=== PATIENT | male | born 1960 | race Caucasian/White ===

== ENCOUNTER 2017-03-09 17:42 | Inpatient (IN) ==
[2017-03-09] MEDS ORDERED: SODIUM CHLORIDE 0.9% 1,000 ML IV STA (18:08)
[2017-03-09] MEDS ORDERED: diphenhydrAMINE 50 MG/1 ML VIAL IV STA (18:10)
[2017-03-09] MEDS ORDERED: methylPREDNISolone SOD SUC 125 MG/2 ML VIAL IV STA (18:10)
[2017-03-09] MEDS ORDERED: AZITHROMYCIN INJ 500 MG in SODIUM CHLORIDE 0.9% 250 ML IV STA (18:10)
--- NOTE | 2017-03-09 18:29 | Emergency Department Note ---
Arrival - Arrival Chief Complaint: Upper Respiratory Stated Complaint: pharyngitis, cant swallow, cant eat ED Nursing Triage Note: pt to triage via [facility] with c/o having sore throat onset tuesday. pt was seen here on tuesday for same c/o and was diagnosed with pharnygitis and cant hardly eat or drink from throat hurting. pt states he feels like he is weak and dehydrated. Mode of Arrival: Wheelchair Limitations: No Limitations Source: Patient, Family, Old Records Reviewed, RN Notes Reviewed Time Seen by Provider: 03/09/17 17:55 - History of Present Illness HPI Narrative: The patient complains of a sore throat that started 3 days ago. 2 days ago he was seen here in the ER although I can find no records of this. The family states he received Rocephin and a prescription for Keflex and liquid pain medication. He has had 3 doses of the Keflex. He reports no improvement in the sore throat and has been unable to eat or drink much for the past 2 days. Says he feels weak and dehydrated. He has not taken his temperature and does not know if he has had fever. He denies rhinorrhea. He does have a chronic cough from COPD. Allergies/Adverse Reactions: Allergies Allergy/AdvReac Type Severity Reaction Status Date / Time clindamycin Allergy Unknown/Unable Verified 03/09/17 17:49 to obtain Penicillins AdvReac Nausea Verified 03/09/17 17:49 Home Medications: Home Medications Medication Instructions Recorded Confirmed Type Allopurinol [Zyloprim] 300 mg PO DAILY 11/09/14 08/21/16 History Aspirin [Ecotrin] 81 mg PO BEDTIME 11/09/14 08/21/16 History Cimetidine [Tagamet Hb] 200 mg PO BID 11/09/14 08/21/16 History Clopidogrel [Plavix] 75 mg PO DAILY 11/09/14 08/21/16 History Diltiazem Cd Cap [Cardizem CD] 300 mg PO DAILY 11/09/14 08/21/16 History Hydrochlorothiazide 25 mg PO DAILY 11/09/14 08/21/16 History Magnesium Oxide [Magox 400] 400 mg PO DAILY 11/09/14 08/21/16 History Simvastatin [Zocor] 40 mg PO BEDTIME 11/09/14 08/21/16 History Gemfibrozil [Lopid] 600 mg PO BIDAC tablet 06/13/15 08/21/16 Rx Nitroglycerin Sl Tab [Nitrostat] 0.4 mg SL Q5M PRN #0 tablet 06/13/15 08/21/16 Rx Insulin NPH Human Isophane 42 unit SUBCUT BID 10/07/15 08/21/16 History [NovoLIN N] Lansoprazole 15 mg PO DAILY 08/21/16 08/21/16 History Lisinopril [Lisinopril] 20 mg PO DAILY 08/21/16 08/21/16 History Sulfameth/Trimeth 800-160 Tab 1 tablet PO BID #20 tablet 08/21/16 Rx [Bactrim DS Tab] Warfarin Sodium 5 mg PO Q3D 08/21/16 08/21/16 History Warfarin Sodium 10 mg PO DAILY 08/21/16 08/21/16 History glipiZIDE [Glucotrol] 5 mg PO BID 08/21/16 08/21/16 History Isosorbide Mononitrate [Imdur] 30 mg PO DAILY #30 tablet 10/21/16 Rx Metoclopramide Tab [Reglan Tab] 5 mg PO ACHS #120 tablet 10/21/16 Rx Review of System - Review of System 12 point system: reviewed and no additional remarkable complaints except as stated - Review of System Constitutional: Present: weakness Head/Ears/Nose/Throat: Present: sore throat. Absent: nasal drainage Respiratory: Present: cough. Absent: respiratory distress, wheezing Cardiovascular: Absent: chest pain Gastrointestinal: Present: nausea. Absent: vomiting Medical,Surgical,& Family Hx - Medical History Cardio: History of: CAD (stents PLACED 4 DIFFERENT TIMES), Hypertension, [place] Neurology: History of: Cerebrovascular Accident (7-8 YEARS AGO), TIA ("about 8- 10 years ago") HEENT: History of: Eye Problem (wears reading glasses) Endocrine: History of: Diabetes Mellitus (NIDDM), Dyslipidemia Rheumatology: History of;: Gout Respiratory: History of: COPD (wears c-pap machine at night), Obstructive Sleep Apnea Renal: History of: Renal Problems (Mild CRF diabetic related) Gastrointestinal: History of: Hemorrhoids Hematology: History of: Blood Disorders (polycythemia vera) - Surgical History Cardiac Surgeries: Sugical HX of: Cardiac Catheterization (2 WEEKS AGO) - Family History Family History: Reports;: Family Heart Disease (brother- heart defects, no coronary artery disease) - Social History Smoking Status: Smoker, status unknown Frequency of Alcohol Use: None Type of Drug Use: None Exam Physical Examination: GENERAL: Alert. No acute distress. Strong smell of cigarette smoke. HEENT: Normocephalic and atraumatic. There is no nasal drainage. Very dry mucous membranes. There is pharyngeal erythema and exudate. Also a small amount of exudate on the soft palate. NECK: Normal inspection. Bilateral tender anterior cervical lymphadenopathy. LUNGS: No respiratory distress. Good air movement. Few rhonchi bilaterally. HEART: Regular rate and rhythm. ABDOMEN: Soft, nontender and nondistended with normoactive bowel sounds. BACK: Mid back lipoma. Nontender. SKIN: Color normal. Warm and dry. EXTREMITIES: Nontender. Normal range of motion. No pedal edema. NEUROLOGICAL/PSYCHIATRIC: Alert and oriented -3 with normal mood and affect.. Vital Signs: Vital Signs Temperature 98.9 F 03/09/17 17:57 Pulse Rate 121 H 03/09/17 19:20 Respiratory Rate 18 03/09/17 19:20 Blood Pressure 178/90 03/09/17 19:20 O2 Sat by Pulse Oximetry 95 03/09/17 17:46 Course - Reevaluation(s) Reevaluation #1: The patient feels better after fluids but still appears dry and I think he is going to need further hydration. I have discussed the patient with Dr. Ba who will see him in the ER and admit. Time: 20:12 Results - Labs CBC & BMP: 03/09/17 18:24 03/09/17 18:24 Lab Results: I have reviewed the patients labs Labs: Laboratory Tests 03/09/17 03/09/17 18:24 18:24 Lactic Acid 1.2 Infectious [place] Assay Negative Disposition Clinical Impression: Pharyngitis, COPD (chronic obstructive pulmonary disease), Dehydration Case discussed with: patient, patient's family Disposition: Still a Patient Condition: Stable Time of Disposition: 20:13
[2017-03-09] MEDS ORDERED: diphenhydrAMINE 50 MG/1 ML VIAL ONE (18:37)
[2017-03-09] MEDS ORDERED: methylPREDNISolone SOD SUC 125 MG/2 ML VIAL ONE (18:37)
[2017-03-09 18:45] LABS: Basophils # 0.1 10*3/uL (0.0-0.2); Basophils % 0.3 % (0.0-0.8); Eosinophils # 0.3 10*3/uL (0.0-0.87); Hematocrit 40.1 VOL% (42.0-52.0); Hemoglobin 13.9 GM/DL (14.0-18.0); Immature Granulocytes % 0.7 %; Lymphocytes # 1.4 10*3/uL (1.4-4.0); Lymphocytes % 9.2 % (21.2-54.2); Mean Corpuscular HGB Conc 34.7 GM/DL (32-36); Mean Corpuscular Hemoglobin 31 PG (27-34); Mean Corpuscular Volume 89.9 FL (87-102); Mean Platelet Volume 12.4 FL (9.6-12.0); Monocytes # 1.1 10*3/uL (0.11-0.8); Neutrophils # 12.4 10*3/uL (1.4-7.4); Neutrophils % 80.8 % (38.7-73.9); Platelet Count 270 T/CUMM (130-400); Red Blood Count 4.46 MC/CUMM (3.8-5.5); Red Cell Distribution Width 15.7 % (9.3-17.3); White Blood Count 15.3 T/CUMM (4-12)
[2017-03-09] MEDS ORDERED: AZITHROMYCIN 500 MG VIAL IV ONE (19:00)
[2017-03-09 19:02] LABS: Calcium 9.3 MG/DL (8.5-10.1); Osmolality,Calculated 301.7 MOS/KG (273-304); Potassium 4.7 MMOL/L (3.5-5.1)
[2017-03-09] MEDS ORDERED: MORPHINE 2 MG/1 ML SYRINGE IV STA (20:11)
[2017-03-09] MEDS ORDERED: MORPHINE 2 MG/1 ML SYRINGE ONE (20:21)
[2017-03-09] MEDS ORDERED: DEXTROSE 50% 25 GM/50 ML SYRINGE IV PRN ×2 (20:22→23:17)
[2017-03-09] MEDS ORDERED: MORPHINE 2 MG/1 ML SYRINGE IV PRN (20:22)
[2017-03-09] MEDS ORDERED: GLUCAGON 1 MG VIAL IM PRN ×2 (20:22→23:17)
[2017-03-09] MEDS ORDERED: ONDANSETRON 4 MG/2 ML VIAL IV PRN (20:22)
--- NOTE | 2017-03-09 20:31 | Hospitalist History & Physical ---
Assessment and Plan (1) Dehydration Status: Acute Current Visit: Yes (2) Pharyngitis Status: Acute Current Visit: Yes (3) COPD (chronic obstructive pulmonary disease) Status: Chronic Current Visit: No (4) Chronic anticoagulation Status: Chronic Current Visit: No (5) Polycythemia vera Status: Chronic Current Visit: No (6) Renal insufficiency Status: Chronic Current Visit: No (7) Tobacco abuse Status: Chronic Assessment and plan: Patient is ago to be admitted to our service. He is allergic to penicillin therefore azithromycin IV would be appropriate treatment. If he does not have significant improvement he might need a CT scan to document there is no abscess in his pharynx. Will recheck labs in the in the morning. His lactate level is not elevated. Start up with a clear liquid diet. Insulin sliding scale as needed. Tobacco cessation was discussed with the patient. Greater than 3 minutes was spent on the subject. Current Visit: No History of Present Illness Chief complaint: Inability to swallow and sore throat History of present illness: Mr. René Lovett is a 57 year old male with past medical history significant for polycythemia vera, stroke, coronary artery disease, gout, COPD, obstructive sleep apnea, diabetes and hypertension who was in his normal state of health till Tuesday. Patient went to the doctor and got diagnosed with pharyngitis. He was able to eat or drink or keep anything down and take his medication secondary to sore throat. He came up to our hospital for further evaluation. He is dehydrated and I was consulted to admit the patient to the emergency room. Home Medications Medication Instructions Recorded Confirmed Type Allopurinol [Zyloprim] 300 mg PO DAILY 11/09/14 03/09/17 History Aspirin [Ecotrin] 81 mg PO BEDTIME 11/09/14 03/09/17 History Cimetidine [Tagamet Hb] 200 mg PO BID 11/09/14 03/09/17 History Clopidogrel [Plavix] 75 mg PO DAILY 11/09/14 03/09/17 History Diltiazem Cd Cap [Cardizem CD] 300 mg PO DAILY 11/09/14 03/09/17 History Hydrochlorothiazide 25 mg PO DAILY 11/09/14 03/09/17 History Magnesium Oxide [Magox 400] 400 mg PO DAILY 11/09/14 03/09/17 History Simvastatin [Zocor] 40 mg PO BEDTIME 11/09/14 03/09/17 History Gemfibrozil [Lopid] 600 mg PO BIDAC tablet 06/13/15 03/09/17 Rx Nitroglycerin Sl Tab [Nitrostat] 0.4 mg SL Q5M PRN #0 tablet 06/13/15 03/09/17 Rx Insulin NPH Human Isophane 42 unit SUBCUT BID 10/07/15 03/09/17 History [NovoLIN N] Lisinopril [Lisinopril] 20 mg PO DAILY 08/21/16 03/09/17 History Warfarin Sodium 10 mg PO DAILY 08/21/16 03/09/17 History glipiZIDE [Glucotrol] 5 mg PO BID 08/21/16 03/09/17 History Allergies Allergy/AdvReac Type Severity Reaction Status Date / Time clindamycin Allergy Unknown/Unable Verified 03/09/17 17:49 to obtain Penicillins AdvReac Nausea Verified 03/09/17 17:49 Medical,Surgical,& Family Hx - Medical History Cardio: History of: CAD (stents PLACED 4 DIFFERENT TIMES), Hypertension, [place] Neurology: History of: Cerebrovascular Accident (7-8 YEARS AGO), TIA ("about 8- 10 years ago") No history of: Seizures HEENT: History of: Eye Problem (wears reading glasses) Endocrine: History of: Diabetes Mellitus (NIDDM), Dyslipidemia Rheumatology: History of;: Gout Respiratory: History of: COPD (wears c-pap machine at night), Obstructive Sleep Apnea Renal: History of: Renal Problems (Mild CRF diabetic related) Gastrointestinal: History of: Hemorrhoids Hematology: History of: Blood Disorders (polycythemia vera) - Surgical History Cardiac Surgeries: Sugical HX of: Cardiac Catheterization (2 WEEKS AGO) Thoracic Surgeries: Patient denies;: Organ Transplant - Family History Family History: Reports;: Family Heart Disease (brother- heart defects, no coronary artery disease) Denies;: Family Anesthesia Reaction, Family Cancer, Family Diabetes - Social History Smoking Status: Current every day smoker Frequency of Alcohol Use: None Type of Drug Use: None 12 point system: reviewed and no additional remarkable complaints except as stated Exam - Constitutional Vitals: Period Temp Pulse Resp BP Sys/Tracy Pulse Ox Last 24 Hr 98.9 F-98.9 F 118-121 17-20 137-178/80-90 95-98 General appearance: over weight - Head Head exam: Present: normal inspection - Eye Eye exam: Present: EOMI Pupils: Present: GERONIMO - ENT ENT exam: Present: other (Patient has erythematous oropharynx and there is exudate on his tonsils) - Neck Neck exam: Present: lymphadenopathy - Respiratory Respiratory exam: Present: clear to auscultation bilaterally - Cardiovascular Cardiovascular exam: Present: regular rate and rhythm - GI/Abdominal GI/Abdominal exam: Present: normal bowel sounds - Extremities Exam Extremities exam: Present: normal inspection - Back Exam Back exam: Present: normal inspection - Neurological Exam Neurological exam: Present: alert, oriented X3 - Psychiatric Psychiatric exam: Present: normal affect, normal mood Results - Labs CBC & BMP: 03/09/17 18:24 03/09/17 18:24
[2017-03-09] MEDS ORDERED: NICOTINE 21 MG/24 HR PATCH TRANSDERM PRN (21:10)
[2017-03-09] MEDS: SIMVASTATIN 40 MG TABLET PO SCH (22:06)
[2017-03-09] MEDS: ASPIRIN EC 81 MG TABLET PO SCH (22:06)
[2017-03-09] MEDS: FAMOTIDINE 20 MG TABLET PO SCH (22:06)
[2017-03-09 22:37] LABS: PT Patient Result 171.3 SECS
[2017-03-09 22:40] LABS: INR 13.7
[2017-03-09] MEDS: SODIUM ACETATE 50 MEQ in SODIUM CHLORIDE 0.45% 1,000 ML IV SCH (22:51)
[2017-03-09] MEDS ORDERED: PHYTONADIONE 5 MG TABLET PO ONE (23:19)
[2017-03-10 07:25] LABS: Basophils % 0.1 % (0.0-0.8); Hematocrit 35.7 VOL% (42.0-52.0); Hemoglobin 12.2 GM/DL (14.0-18.0); Immature Granulocytes % 0.8 %; Immature Granulocytes Absolute 0.08 #; Lymphocytes # 0.6 10*3/uL (1.4-4.0); Lymphocytes % 6.5 % (21.2-54.2); Mean Corpuscular HGB Conc 34.2 GM/DL (32-36); Mean Corpuscular Hemoglobin 31 PG (27-34); Mean Corpuscular Volume 91.3 FL (87-102); Mean Platelet Volume 12.5 FL (9.6-12.0); Monocytes # 0.3 10*3/uL (0.11-0.8); Monocytes % 3.2 % (1.7-12.7); Neutrophils # 8.8 10*3/uL (1.4-7.4); Neutrophils % 89.4 % (38.7-73.9); Platelet Count 233 T/CUMM (130-400); Red Blood Count 3.91 MC/CUMM (3.8-5.5); Red Cell Distribution Width 15.5 % (9.3-17.3); White Blood Count 9.9 T/CUMM (4-12)
[2017-03-10 07:46] LABS: PT Patient Result 133.9 SECS
[2017-03-10 07:50] LABS: INR 10.9
[2017-03-10 08:20] LABS: Calcium 8.7 MG/DL (8.5-10.1); Osmolality,Calculated 317.3 MOS/KG (273-304); Potassium 5.2 MMOL/L (3.5-5.1)
[2017-03-10] MEDS: SODIUM ACETATE 50 MEQ in SODIUM CHLORIDE 0.45% 1,000 ML IV SCH ×3 (08:40→20:26)
[2017-03-10] MEDS: INSULIN REGULAR 100 UNIT/ML SUBCUT SCH ×4 (08:40→21:44)
[2017-03-10] MEDS: GEMFIBROZIL 600 MG TABLET PO SCH ×2 (08:41→17:18)
[2017-03-10] MEDS: hydroCHLOROthiazide 25 MG TABLET PO SCH (08:41)
[2017-03-10] MEDS: DILTIAZEM CD 300 MG CAPSULE PO SCH (08:41)
[2017-03-10] MEDS: FAMOTIDINE 20 MG TABLET PO SCH ×2 (08:42→20:22)
[2017-03-10] MEDS: MAGNESIUM OXIDE 400 MG TABLET PO SCH (08:42)
[2017-03-10] MEDS: ALLOPURINOL 300 MG TABLET PO SCH (08:42)
[2017-03-10] MEDS: CLOPIDOGREL 75 MG TABLET PO SCH (08:45)
[2017-03-10] MEDS ORDERED: SODIUM POLYSTYRENE SULFATE 15 GM/60 ML BOTTLE PO STA (12:56)
--- NOTE | 2017-03-10 12:58 | Hospitalist Progress Note ---
<Bhaskar Greenberg - Last Filed: 03/10/17 13:06> Assessment and Plan (1) COPD (chronic obstructive pulmonary disease) Status: Chronic Current Visit: Yes (2) Dehydration Status: Acute Assessment and plan: Continue IVF. Decrease to 75 Current Visit: Yes (3) Pharyngitis Status: Acute Assessment and plan: Condition has improved. We will follow. Current Visit: Yes (4) Renal insufficiency Status: Chronic Assessment and plan: Bun/creatinine 76/2.6. Daily bmp. Current Visit: No Hospitalist: Subjective Interval history: Pt. seen and examined this morning. Pt. reports that his throat is much better. Pt states he was able to swallow his breakfast and morning medication. He reported some initial difficulty but states it slowly improved. We will advance diet to full liquid. K noted to be at 5.2 today. Bun increased to 76. Glucose noted to be in 300s. We will make changes to sliding scale. Continue to monitor. Exam - Constitutional Vitals: Period Temp Pulse Resp BP Sys/Tracy Pulse Ox Last 24 Hr 96.4 F-98.9 F 92-121 17-22 137-178/80-98 95-98 General appearance: no acute distress, over weight - Head Head exam: Present: normal inspection, normocephalic - Eye Eye exam: Present: EOMI Pupils: Present: GERONIMO - Respiratory Respiratory exam: Present: clear to auscultation bilaterally. Absent: wheezes - Cardiovascular Cardiovascular exam: Present: regular rate and rhythm - GI/Abdominal GI/Abdominal exam: Present: normal bowel sounds, soft. Absent: tenderness - Neurological Exam Neurological exam: Present: alert, oriented X3 - Psychiatric Psychiatric exam: Present: normal affect, normal mood - Skin Skin exam: Present: normal color, warm, dry Results - Labs CBC & BMP: 03/10/17 06:51 03/10/17 06:51 Lab Results: I have reviewed the past 24 hour labs <Darryl Greer - Last Filed: 03/10/17 14:59> Hospitalist: Subjective Interval history: Patient seen and examined independently of RAJAN Greenberg, agree with assessment and plan as documented. Patient feels much better today. He has been able to eat today without much difficulty. Exam - Constitutional Vitals: Period Temp Pulse Resp BP Sys/Tracy Pulse Ox Last 24 Hr 96.4 F-98.9 F 92-121 17-22 137-178/80-98 95-98 Results - Labs CBC & BMP: 03/10/17 06:51 03/10/17 06:51
[2017-03-10] MEDS ORDERED: WARFARIN 10 MG TABLET PO SCH (18:00)
[2017-03-10] MEDS ORDERED: AZITHROMYCIN INJ 500 MG in SODIUM CHLORIDE 0.9% 250 ML IV SCH (19:00)
[2017-03-10] MEDS: SIMVASTATIN 40 MG TABLET PO SCH (20:22)
[2017-03-10] MEDS: ASPIRIN EC 81 MG TABLET PO SCH (20:22)
[2017-03-10] MEDS ORDERED: INSULIN NPH 100 UNIT/ML SUBCUT SCH (21:00)
[2017-03-10] MEDS: INSULIN NPH 100 UNIT/ML SUBCUT SCH (21:44)
[2017-03-11] MEDS: SODIUM ACETATE 50 MEQ in SODIUM CHLORIDE 0.45% 1,000 ML IV SCH (02:28)
[2017-03-11 06:18] LABS: Basophils # 0.1 10*3/uL (0.0-0.2); Basophils % 0.6 % (0.0-0.8); Eosinophils # 0.3 10*3/uL (0.0-0.87); Eosinophils % 2.9 % (0.00-10.9); Hemoglobin 11.5 GM/DL (14.0-18.0); Immature Granulocytes % 0.4 %; Immature Granulocytes Absolute 0.05 #; Lymphocytes # 1.9 10*3/uL (1.4-4.0); Lymphocytes % 16.5 % (21.2-54.2); Mean Corpuscular HGB Conc 33.8 GM/DL (32-36); Mean Corpuscular Hemoglobin 31 PG (27-34); Mean Corpuscular Volume 91.4 FL (87-102); Mean Platelet Volume 12.9 FL (9.6-12.0); Monocytes # 0.8 10*3/uL (0.11-0.8); Monocytes % 7.2 % (1.7-12.7); Neutrophils # 8.5 10*3/uL (1.4-7.4); Neutrophils % 72.4 % (38.7-73.9); Platelet Count 243 T/CUMM (130-400); Red Blood Count 3.72 MC/CUMM (3.8-5.5); Red Cell Distribution Width 15.1 % (9.3-17.3); White Blood Count 11.7 T/CUMM (4-12)
[2017-03-11 06:32] LABS: INR 4.6
[2017-03-11 06:37] LABS: PT Patient Result 53.7 SECS
[2017-03-11 06:41] LABS: Calcium 8.1 MG/DL (8.5-10.1); Magnesium 1.9 MG/DL (1.8-2.4); Potassium 4.6 MMOL/L (3.5-5.1)
[2017-03-11] MEDS: FAMOTIDINE 20 MG TABLET PO SCH (09:32)
[2017-03-11] MEDS: GEMFIBROZIL 600 MG TABLET PO SCH (09:32)
[2017-03-11] MEDS: INSULIN NPH 100 UNIT/ML SUBCUT SCH (09:32)
[2017-03-11] MEDS: ALLOPURINOL 300 MG TABLET PO SCH (09:32)
[2017-03-11] MEDS: hydroCHLOROthiazide 25 MG TABLET PO SCH (09:32)
[2017-03-11] MEDS: DILTIAZEM CD 300 MG CAPSULE PO SCH (09:32)
[2017-03-11] MEDS: MAGNESIUM OXIDE 400 MG TABLET PO SCH (09:32)
[2017-03-11] MEDS: INSULIN REGULAR 100 UNIT/ML SUBCUT SCH ×2 (09:33→12:40)
[2017-03-11] MEDS: CLOPIDOGREL 75 MG TABLET PO SCH (09:36)
--- NOTE | 2017-03-11 10:27 | Discharge Summary ---
<Kathy Barneyda - Last Filed: 03/11/17 10:10> Hospital Course - Hospital Course Hospital Course: This is a 57-year-old male that presented to the ED at [facility] on the night of March 09, 2017 for the evaluation of dysphagia. The patient has a medical history significant for polycythemia vera, cerebrovascular accident, coronary artery disease, gouty arthritis, chronic obstructive pulmonary disease, obstructive sleep apnea, diabetes, hypertension, chronic renal failure, and hemorrhoids. Patient has a surgical history significant for cardiac catheterization. Patient reported his normal state of health until a few days prior to presentation. Patient reported that he had presented to his primary care physician for the same complaint and was she was diagnosed with pharyngitis. He reported that he was unable to eat, drink, or keeping anything down as a result of these symptoms. He became alarmed subsequently presented to the ED for further evaluation. Labs were significant for white blood cell count 50.3, hemoglobin 13.9, hematocrit 40.1, chloride 110 , carbon dioxide 18, BUN 68, hematocrit 2.60, INR was noted at 13 and glucose 228. Patient was subsequently admitted to the hospitalist group for continuation of care. Gentle rehydration, pain management, and empiric antibiotics were initiated at the time of admission. In addition, vitamin K was given in response to the supratherapeutic INR. Rapid strep and blood cultures obtained at the time of ED presentation were essentially negative for any microorganism identification. The patient's condition slowly improved. Today, we feel that he is indeed appropriate for discharge to follow-up with his primary care physician as indicated. He will need to see his pcp early next week for INR check and resuming coumadin. Discharge Plan - Discharge Data Disposition: Disch To Home/Self Care - Discharge Medications New Azithromycin Tab [Zithromax Tab] 500 mg PO DAILY #5 tablet Continue Cimetidine [Tagamet Hb] 200 mg PO BID Allopurinol [Zyloprim] 300 mg PO DAILY Hydrochlorothiazide 25 mg PO DAILY Diltiazem Cd Cap [Cardizem CD] 300 mg PO DAILY Aspirin [Ecotrin] 81 mg PO BEDTIME Magnesium Oxide [Magox 400] 400 mg PO DAILY Clopidogrel [Plavix] 75 mg PO DAILY Simvastatin [Zocor] 40 mg PO BEDTIME Gemfibrozil [Lopid] 600 mg PO BIDAC tablet Nitroglycerin Sl Tab [Nitrostat] 0.4 mg SL Q5M PRN #0 tablet PRN Reason: Chest Pain Insulin NPH Human Isophane [NovoLIN N] 42 unit SUBCUT BID Lisinopril 20 mg PO DAILY glipiZIDE [Glucotrol] 5 mg PO BID Discontinued Warfarin Sodium 10 mg PO DAILY - Follow Up or Referral - Forms/Instructions Exam - Constitutional Vitals: Period Temp Pulse Resp BP Sys/Tracy Pulse Ox Last 24 Hr 96.2 F-97.2 F 78-106 16-22 144-158/76-89 91-100 Discharge Results Procedures and tests throughout hospitalization: Pending Orders 03/09/17 18:13 Quick Strep Panel Stat Throat Culture Stat 03/09/17 18:24 Blood Culture Stat Labs on day of discharge: Labs from last 24 hours 03/11/17 03/11/17 03/11/17 07:20 04:52 04:52 WBC 11.7 RBC 3.72 L Hgb 11.5 L Hct 34.0 L MCV 91.4 MCH 31 MCHC 33.8 RDW 15.1 Plt Count 243 MPV 12.9 H Neut % (Auto) 72.4 Lymph % (Auto) 16.5 L [place] % (Auto) 7.2 Eos % (Auto) 2.9 Baso % (Auto) 0.6 Neut # (Auto) 8.5 H Lymph # (Auto) 1.9 [place] # (Auto) 0.8 Eos # (Auto) 0.3 Baso # (Auto) 0.1 Immature Gran % 0.4 Nucleated RBC % 0.0 Immature Gran # 0.05 Nucleated RBCs # 0.00 Immature Plt Fraction 0.0 INR PT Patient/Control Mix Sodium 143 Potassium 4.6 Chloride 107 Carbon Dioxide 25 Anion Gap 15.6 H BUN 69 H Creatinine 2.00 H GFR Calculation 48 BUN/Creatinine Ratio 34.00 H Glucose 226 H POC Glucose 256 H Calculated Osmolality 311.0 H Calcium 8.1 L Magnesium 1.9 03/11/17 03/10/17 03/10/17 04:52 20:40 15:38 WBC RBC Hgb Hct MCV MCH MCHC RDW Plt Count MPV Neut % (Auto) Lymph % (Auto) [place] % (Auto) Eos % (Auto) Baso % (Auto) Neut # (Auto) Lymph # (Auto) [place] # (Auto) Eos # (Auto) Baso # (Auto) Immature Gran % Nucleated RBC % Immature Gran # Nucleated RBCs # Immature Plt Fraction INR 4.6 PT Patient/Control Mix 53.7 D Sodium Potassium Chloride Carbon Dioxide Anion Gap BUN Creatinine GFR Calculation BUN/Creatinine Ratio Glucose POC Glucose 249 H 224 H Calculated Osmolality Calcium Magnesium 03/10/17 12:17 WBC RBC Hgb Hct MCV MCH MCHC RDW Plt Count MPV Neut % (Auto) Lymph % (Auto) [place] % (Auto) Eos % (Auto) Baso % (Auto) Neut # (Auto) Lymph # (Auto) [place] # (Auto) Eos # (Auto) Baso # (Auto) Immature Gran % Nucleated RBC % Immature Gran # Nucleated RBCs # Immature Plt Fraction INR PT Patient/Control Mix Sodium Potassium Chloride Carbon Dioxide Anion Gap BUN Creatinine GFR Calculation BUN/Creatinine Ratio Glucose POC Glucose 311 H Calculated Osmolality Calcium Magnesium Preliminary micro results at discharge 03/09/17 18:13 Throat Culture - Preliminary Throat Gram Negative Rods 03/09/17 18:24 Blood Culture - Preliminary Blood No growth at 1 day 03/09/17 18:24 Blood Culture - Preliminary Blood No growth at 1 day DS: Provider Date of admission: 03/09/17 20:22 Primary care physician: . No PCP Attending physician on admission: Kenny Angulo MD Discharging clinician: Finesse Barney CNP <Darryl Greer - Last Filed: 03/11/17 11:32> Hospital Course - Time spent with patient Time with patient DS: Greater than 30 minutes (35) Discharge Plan - Discharge Data Condition at Discharge: Stable Discharge Diet: advance to your usual diet Activity: increase activity as tolerated Hygiene: no restrictions Weight Bearing at Discharge: weight bear as tolerated Driving: no restrictions Contact your physician if you experience:: fever over 101, Shortness of breath
[2017-03-11 11:42] VITALS: BP 129/76
== END 2017-03-11 12:25 | disposition home or self-care (01) | DRG 641 ==
LOC: N.ED 17:42 → N.EDINP 20:22 → SUATTDRO 20:22 → N.EDINP 20:49 → N.2E 21:02
PROVIDERS: ADMIT Internal Medicine; ATTEND Internal Medicine

== ENCOUNTER 2017-09-08 19:16 | Inpatient (IN) ==
[2017-09-08] MEDS ORDERED: MORPHINE 2 MG/1 ML SYRINGE IV STA (19:55)
[2017-09-08] MEDS ORDERED: ONDANSETRON 4 MG/2 ML VIAL IV STA (19:55)
[2017-09-08] MEDS ORDERED: ALBUTEROL/IPRATROPIUM 3 ML NEB RESP TX STA (19:55)
[2017-09-08] MEDS ORDERED: FUROSEMIDE 40 MG/4 ML VIAL IV STA (19:55)
[2017-09-08] MEDS ORDERED: ALUM/MAG/SIMETH/LIDO VISC 1:1 30 ML BOTTLE PO STA (19:55)
[2017-09-08] MEDS ORDERED: ASPIRIN 325 MG TABLET PO STA (19:55)
[2017-09-08] MEDS ORDERED: NITROGLYCERIN 2% OINT 1 INCH/GM PACK TOP STA (19:55)
[2017-09-08] MEDS ORDERED: NITROGLYCERIN 2% OINT 1 INCH/GM PACK TOP ONE (20:21)
[2017-09-08] MEDS ORDERED: MORPHINE 2 MG/1 ML SYRINGE ONE (20:21)
[2017-09-08] MEDS ORDERED: ONDANSETRON 4 MG/2 ML VIAL ONE (20:21)
[2017-09-08] MEDS ORDERED: ASPIRIN 325 MG TABLET ONE (20:21)
[2017-09-08] MEDS ORDERED: FUROSEMIDE 40 MG/4 ML VIAL ONE (20:21)
[2017-09-08] MEDS ORDERED: ALUM/MAG/SIMETH/LIDO VISC 1:1 30 ML BOTTLE PO ONE (20:22)
[2017-09-08 20:49] LABS: Basophils # 0.1 10*3/uL (0.0-0.2); Eosinophils # 0.7 10*3/uL (0.0-0.87); Eosinophils % 9.8 % (0.00-10.9); Hematocrit 43.5 VOL% (42.0-52.0); Hemoglobin 14.9 GM/DL (14.0-18.0); Immature Granulocytes % 0.7 %; Immature Granulocytes Absolute 0.05 #; Lymphocytes # 1.5 10*3/uL (1.4-4.0); Lymphocytes % 22.6 % (21.2-54.2); Mean Corpuscular HGB Conc 34.3 GM/DL (32-36); Mean Corpuscular Hemoglobin 32 PG (27-34); Mean Corpuscular Volume 93.3 FL (87-102); Mean Platelet Volume 12.9 FL (9.6-12.0); Monocytes # 1.3 10*3/uL (0.11-0.8); Neutrophils # 3.2 10*3/uL (1.4-7.4); Neutrophils % 46.9 % (38.7-73.9); Platelet Count 220 T/CUMM (130-400); Red Blood Count 4.66 MC/CUMM (3.8-5.5); Red Cell Distribution Width 14.8 % (9.3-17.3); White Blood Count 6.7 T/CUMM (4-12)
[2017-09-08 20:58] LABS: INR 1.1; PT Patient Result 11.6 SECS
[2017-09-08 21:04] LABS: Alanine Aminotransferase 9 U/L (16-61); Albumin 3.2 G/DL (3.4-5.0); Alkaline Phosphatase 153 U/L (45-117); Aspartate Amino Transferase 9 U/L (0-37); Bilirubin,Total < 0.39 MG/DL (0.2-1.0); Blood Urea Nitrogen 39 MG/DL (7-18); Calcium 8.1 MG/DL (8.5-10.1); Glucose 129 MG/DL (74-106); Osmolality,Calculated 285.7 MOS/KG (273-304); Potassium 4.7 MMOL/L (3.5-5.1); Sodium 138 MMOL/L (136-145); Total Protein 7.2 G/DL (6.4-8.3)
[2017-09-08 21:34] LABS: Band Neutrophils 1 % (0-10); Eosinophils 5 % (0-10); Lymphocytes 26 % (20-55); Myelocytes 1 %; Platelet Estimate Normal; Segmented Neutrophils 54 % (50-85); Total Cells Counted 100
[2017-09-08] MEDS ORDERED: MAGNESIUM SULF RIDER 2 GM in PREMIX 1 EACH IV STA (21:36)
[2017-09-08] MEDS ORDERED: SODIUM CHLORIDE 0.9% 500 ML IV STA (21:37)
[2017-09-08] MEDS ORDERED: MAGNESIUM SULF RIDER 50 ML IV ONE (21:48)
[2017-09-08] MEDS ORDERED: ACETAMINOPHEN 325 MG TABLET PO PRN (23:36)
[2017-09-08] MEDS ORDERED: ONDANSETRON 4 MG/2 ML VIAL IV PRN (23:36)
[2017-09-08] MEDS ORDERED: NITROGLYCERIN SL 0.4 MG TABLET SL PRN (23:40)
[2017-09-08] MEDS ORDERED: DEXTROSE 50% 25 GM/50 ML VIAL IV PRN (23:45)
[2017-09-08] MEDS ORDERED: GLUCAGON 1 MG VIAL IM PRN (23:45)
[2017-09-08] MEDS ORDERED: ALBUTEROL 2.5 MG/3 ML NEB RESP TX PRN (23:51)
[2017-09-09] MEDS ORDERED: methylPREDNISolone SOD SUC 40 MG/1 ML VIAL ONE (00:05)
[2017-09-09] MEDS ORDERED: hydrALAZINE 20 MG/1 ML VIAL IV PRN (00:50)
[2017-09-09] MEDS: CLOPIDOGREL 75 MG TABLET PO SCH ×2 (01:22→21:34)
[2017-09-09] MEDS: SIMVASTATIN 40 MG TABLET PO SCH ×2 (01:22→21:34)
[2017-09-09] MEDS: guaiFENesin/DM ER 600-30 MG TABLET PO PRN (01:22)
[2017-09-09] MEDS: cefTRIAXone 1,000 MG in SYRINGE 1 EACH IV SCH (01:24)
[2017-09-09] MEDS: methylPREDNISolone SOD SUC 40 MG/1 ML VIAL IV SCH ×3 (01:30→16:44)
[2017-09-09] MEDS: INSULIN NPH 100 UNIT/ML SUBCUT SCH ×3 (01:33→21:34)
[2017-09-09] MEDS: ALBUTEROL/IPRATROPIUM 3 ML NEB RESP TX SCH ×4 (02:20→19:10)
[2017-09-09 05:19] LABS: Basophils % 0.5 % (0.0-0.8); Eosinophils # 0.2 10*3/uL (0.0-0.87); Eosinophils % 3.2 % (0.00-10.9); Hematocrit 43.3 VOL% (42.0-52.0); Hemoglobin 15.2 GM/DL (14.0-18.0); Immature Granulocytes % 0.8 %; Immature Granulocytes Absolute 0.06 #; Lymphocytes # 0.6 10*3/uL (1.4-4.0); Mean Corpuscular HGB Conc 35.1 GM/DL (32-36); Mean Corpuscular Hemoglobin 32 PG (27-34); Mean Corpuscular Volume 91.4 FL (87-102); Monocytes # 0.2 10*3/uL (0.11-0.8); Monocytes % 2.8 % (1.7-12.7); Neutrophils # 6.4 10*3/uL (1.4-7.4); Neutrophils % 84.7 % (38.7-73.9); Platelet Count 200 T/CUMM (130-400); Red Blood Count 4.74 MC/CUMM (3.8-5.5); Red Cell Distribution Width 14.5 % (9.3-17.3); White Blood Count 7.6 T/CUMM (4-12)
[2017-09-09 05:43] LABS: Calcium 8.1 MG/DL (8.5-10.1); Osmolality,Calculated 292.1 MOS/KG (273-304); Potassium 5.4 MMOL/L (3.5-5.1)
[2017-09-09] MEDS: GEMFIBROZIL 600 MG TABLET PO SCH ×2 (09:29→16:43)
[2017-09-09] MEDS: glipiZIDE 10 MG TABLET PO SCH ×2 (09:29→16:43)
[2017-09-09] MEDS: ALLOPURINOL 300 MG TABLET PO SCH (09:29)
[2017-09-09] MEDS: hydroCHLOROthiazide 25 MG TABLET PO SCH (09:29)
[2017-09-09] MEDS: MAGNESIUM OXIDE 400 MG TABLET PO SCH (09:29)
[2017-09-09] MEDS: LISINOPRIL 20 MG TABLET PO SCH (09:29)
[2017-09-09] MEDS: NICOTINE 21 MG/24 HR PATCH TRANSDERM SCH (09:29)
[2017-09-09] MEDS: PANTOPRAZOLE 40 MG TABLET PO SCH (09:29)
[2017-09-09] MEDS: DILTIAZEM CD 300 MG CAPSULE PO SCH (09:29)
[2017-09-09] MEDS: INSULIN LISPRO 100 UNIT/ML SUBCUT SCH ×5 (09:30→21:34)
[2017-09-09] MEDS: WARFARIN 5 MG TABLET PO SCH (16:43)
[2017-09-10] MEDS: ALBUTEROL/IPRATROPIUM 3 ML NEB RESP TX SCH ×4 (00:41→19:51)
[2017-09-10] MEDS: cefTRIAXone 1,000 MG in SYRINGE 1 EACH IV SCH (03:04)
[2017-09-10] MEDS: methylPREDNISolone SOD SUC 40 MG/1 ML VIAL IV SCH ×2 (03:04→11:59)
[2017-09-10 05:42] LABS: Calcium 8.7 MG/DL (8.5-10.1); Osmolality,Calculated 294.2 MOS/KG (273-304); Potassium 5.4 MMOL/L (3.5-5.1)
[2017-09-10] MEDS: INSULIN LISPRO 100 UNIT/ML SUBCUT SCH ×4 (07:57→21:28)
[2017-09-10] MEDS: GEMFIBROZIL 600 MG TABLET PO SCH ×2 (07:57→16:34)
[2017-09-10] MEDS: glipiZIDE 10 MG TABLET PO SCH ×2 (07:57→16:34)
[2017-09-10] MEDS: NICOTINE 21 MG/24 HR PATCH TRANSDERM SCH (07:59)
[2017-09-10] MEDS: DILTIAZEM CD 300 MG CAPSULE PO SCH (08:00)
[2017-09-10] MEDS: ALLOPURINOL 300 MG TABLET PO SCH (08:01)
[2017-09-10] MEDS: hydroCHLOROthiazide 25 MG TABLET PO SCH (08:01)
[2017-09-10] MEDS: INSULIN NPH 100 UNIT/ML SUBCUT SCH ×2 (08:01→21:29)
[2017-09-10] MEDS: PANTOPRAZOLE 40 MG TABLET PO SCH (08:01)
[2017-09-10] MEDS: LISINOPRIL 20 MG TABLET PO SCH (08:01)
[2017-09-10] MEDS: MAGNESIUM OXIDE 400 MG TABLET PO SCH (08:01)
[2017-09-10] MEDS ORDERED: WARFARIN 7.5 MG TABLET PO SCH (16:00)
[2017-09-10] MEDS: SIMVASTATIN 40 MG TABLET PO SCH (21:29)
[2017-09-10] MEDS: CLOPIDOGREL 75 MG TABLET PO SCH (21:29)
[2017-09-11] MEDS: ALBUTEROL/IPRATROPIUM 3 ML NEB RESP TX SCH ×4 (00:44→19:25)
[2017-09-11] MEDS: cefTRIAXone 1,000 MG in SYRINGE 1 EACH IV SCH (00:59)
[2017-09-11 06:00] LABS: Calcium 8.7 MG/DL (8.5-10.1); Osmolality,Calculated 301.2 MOS/KG (273-304); Potassium 4.9 MMOL/L (3.5-5.1)
[2017-09-11] MEDS: DILTIAZEM CD 300 MG CAPSULE PO SCH (08:26)
[2017-09-11] MEDS: guaiFENesin/DM ER 600-30 MG TABLET PO PRN (08:26)
[2017-09-11] MEDS: NICOTINE 21 MG/24 HR PATCH TRANSDERM SCH (08:26)
[2017-09-11] MEDS: PANTOPRAZOLE 40 MG TABLET PO SCH (08:27)
[2017-09-11] MEDS: INSULIN NPH 100 UNIT/ML SUBCUT SCH ×2 (08:27→21:45)
[2017-09-11] MEDS: ALLOPURINOL 300 MG TABLET PO SCH (08:27)
[2017-09-11] MEDS: hydroCHLOROthiazide 25 MG TABLET PO SCH (08:27)
[2017-09-11] MEDS: GEMFIBROZIL 600 MG TABLET PO SCH ×2 (08:27→15:58)
[2017-09-11] MEDS: MAGNESIUM OXIDE 400 MG TABLET PO SCH (08:27)
[2017-09-11] MEDS: LISINOPRIL 20 MG TABLET PO SCH (08:27)
[2017-09-11] MEDS: glipiZIDE 10 MG TABLET PO SCH ×2 (08:27→15:58)
[2017-09-11] MEDS: INSULIN LISPRO 100 UNIT/ML SUBCUT SCH ×4 (08:28→21:45)
[2017-09-11] MEDS: predniSONE 20 MG TABLET PO SCH (08:31)
[2017-09-11] MEDS: WARFARIN 5 MG TABLET PO SCH (15:58)
[2017-09-11] MEDS: CLOPIDOGREL 75 MG TABLET PO SCH (21:46)
[2017-09-11] MEDS: SIMVASTATIN 40 MG TABLET PO SCH (21:46)
[2017-09-12] MEDS: cefTRIAXone 1,000 MG in SYRINGE 1 EACH IV SCH (01:32)
[2017-09-12] MEDS: ALBUTEROL/IPRATROPIUM 3 ML NEB RESP TX SCH ×4 (01:33→19:40)
[2017-09-12] MEDS ORDERED: SODIUM CHLORIDE 0.9% 500 ML IV ONE (08:08)
[2017-09-12] MEDS: INSULIN LISPRO 100 UNIT/ML SUBCUT SCH ×4 (08:40→21:05)
[2017-09-12] MEDS: INSULIN NPH 100 UNIT/ML SUBCUT SCH ×2 (08:44→21:06)
[2017-09-12] MEDS: predniSONE 20 MG TABLET PO SCH (08:50)
[2017-09-12] MEDS: PANTOPRAZOLE 40 MG TABLET PO SCH (08:50)
[2017-09-12 08:54] LABS: INR 1.5; PT Patient Result 15.7 SECS
[2017-09-12] MEDS: GEMFIBROZIL 600 MG TABLET PO SCH ×2 (08:55→17:22)
[2017-09-12] MEDS: MAGNESIUM OXIDE 400 MG TABLET PO SCH (08:55)
[2017-09-12] MEDS: glipiZIDE 10 MG TABLET PO SCH ×2 (08:55→17:21)
[2017-09-12] MEDS: DILTIAZEM CD 300 MG CAPSULE PO SCH (08:55)
[2017-09-12] MEDS: hydroCHLOROthiazide 25 MG TABLET PO SCH (08:55)
[2017-09-12 09:11] LABS: Troponin I Only < 0.015 NG/ML (0.00-0.045)
[2017-09-12] MEDS: NICOTINE 21 MG/24 HR PATCH TRANSDERM SCH (09:20)
[2017-09-12] MEDS: METOPROLOL TARTRATE 25 MG TABLET PO SCH ×2 (14:41→21:05)
[2017-09-12] MEDS: ASPIRIN EC 81 MG TABLET PO SCH (14:42)
[2017-09-12] MEDS: ENOXAPARIN 30 MG/0.3 ML SYRINGE SUBCUT SCH (17:21)
[2017-09-12] MEDS: WARFARIN 7.5 MG TABLET PO SCH (18:03)
[2017-09-12 18:44] LABS: Apearance,Urine CLEAR (Clear); Bilirubin,Urine Negative (Negative); Blood, Urine Small mg/dL (Negative); Glucose,Urine (UA) >=500 mg/dL (Negative); Ketones,Urine Negative (Negative); Mucus,Urine Occasional /LPF (Occasional); Nitrite,Urine Negative (Negative); Protein,Urine >=500 MG/DL; RBC,Urine 2 /HPF (0-4); Urine Color Straw (Yellow); Urine Urobilinogen < 2.0 EU/DL (0.2-1.0); WBC,Urine 1 /HPF (0-6)
[2017-09-12] MEDS: CLOPIDOGREL 75 MG TABLET PO SCH (21:05)
[2017-09-12] MEDS: SIMVASTATIN 40 MG TABLET PO SCH (21:05)
[2017-09-13] MEDS: cefTRIAXone 1,000 MG in SYRINGE 1 EACH IV SCH (01:33)
[2017-09-13] MEDS: ALBUTEROL/IPRATROPIUM 3 ML NEB RESP TX SCH ×4 (01:36→19:43)
[2017-09-13 04:50] LABS: Basophils % 0.1 % (0.0-0.8); Eosinophils % 0.1 % (0.00-10.9); Hematocrit 38.7 VOL% (42.0-52.0); Hemoglobin 13.1 GM/DL (14.0-18.0); Immature Granulocytes % 1.6 %; Immature Granulocytes Absolute 0.14 #; Lymphocytes # 0.7 10*3/uL (1.4-4.0); Lymphocytes % 8.1 % (21.2-54.2); Mean Corpuscular HGB Conc 33.9 GM/DL (32-36); Mean Corpuscular Hemoglobin 32 PG (27-34); Mean Corpuscular Volume 93.7 FL (87-102); Mean Platelet Volume 13.2 FL (9.6-12.0); Monocytes # 0.9 10*3/uL (0.11-0.8); Monocytes % 9.7 % (1.7-12.7); Neutrophils # 7.2 10*3/uL (1.4-7.4); Neutrophils % 80.4 % (38.7-73.9); Platelet Count 132 T/CUMM (130-400); Red Blood Count 4.13 MC/CUMM (3.8-5.5); Red Cell Distribution Width 14.6 % (9.3-17.3)
[2017-09-13 04:56] LABS: INR 1.4; PT Patient Result 14.3 SECS
[2017-09-13 05:14] LABS: Potassium 5.8 MMOL/L (3.5-5.1)
[2017-09-13 05:18] LABS: Risk Ratio 3.08; VLDL CHOLESTEROL 90.4 MG/DL
[2017-09-13] MEDS: INSULIN LISPRO 100 UNIT/ML SUBCUT SCH ×4 (08:24→21:11)
[2017-09-13] MEDS: hydroCHLOROthiazide 25 MG TABLET PO SCH (09:56)
[2017-09-13] MEDS: glipiZIDE 10 MG TABLET PO SCH ×2 (10:16→16:09)
[2017-09-13] MEDS: ASPIRIN EC 81 MG TABLET PO SCH (10:16)
[2017-09-13] MEDS: hydroCHLOROthiazide 12.5 MG CAPSULE PO SCH (10:16)
[2017-09-13] MEDS: NICOTINE 21 MG/24 HR PATCH TRANSDERM SCH (10:16)
[2017-09-13] MEDS: GEMFIBROZIL 600 MG TABLET PO SCH ×2 (10:17→16:09)
[2017-09-13] MEDS: predniSONE 20 MG TABLET PO SCH (10:17)
[2017-09-13] MEDS: MAGNESIUM OXIDE 400 MG TABLET PO SCH (10:17)
[2017-09-13] MEDS: METOPROLOL TARTRATE 25 MG TABLET PO SCH ×2 (10:17→21:12)
[2017-09-13] MEDS: DILTIAZEM CD 300 MG CAPSULE PO SCH (10:17)
[2017-09-13] MEDS: INSULIN NPH 100 UNIT/ML SUBCUT SCH ×2 (10:18→21:11)
[2017-09-13] MEDS: PANTOPRAZOLE 40 MG TABLET PO SCH (10:18)
[2017-09-13] MEDS ORDERED: SODIUM POLYSTYRENE SULFATE 15 GM/60 ML BOTTLE PO STA (11:36)
[2017-09-13] MEDS ORDERED: WARFARIN 7.5 MG TABLET PO ONE (15:53)
[2017-09-13] MEDS ORDERED: SODIUM CHLORIDE 0.9% 500 ML IV ONE (16:04)
[2017-09-13] MEDS: ENOXAPARIN 30 MG/0.3 ML SYRINGE SUBCUT SCH (16:08)
[2017-09-13] MEDS: WARFARIN 7.5 MG TABLET PO SCH (17:10)
[2017-09-13] MEDS: SODIUM CHLORIDE 0.9% 1,000 ML IV SCH ×2 (17:35→21:18)
[2017-09-13] MEDS ORDERED: predniSONE 20 MG TABLET PO SCH (19:32)
[2017-09-13] MEDS: PROPAFENONE 150 MG TABLET PO SCH (21:10)
[2017-09-13] MEDS: SIMVASTATIN 40 MG TABLET PO SCH (21:11)
[2017-09-13] MEDS: CLOPIDOGREL 75 MG TABLET PO SCH (21:17)
[2017-09-14] MEDS: ALBUTEROL/IPRATROPIUM 3 ML NEB RESP TX SCH ×2 (01:30→07:48)
[2017-09-14] MEDS: SODIUM CHLORIDE 0.9% 1,000 ML IV SCH ×2 (02:05→11:29)
[2017-09-14] MEDS: cefTRIAXone 1,000 MG in SYRINGE 1 EACH IV SCH (02:06)
[2017-09-14 06:29] LABS: Basophils % 0.2 % (0.0-0.8); Eosinophils % 0.2 % (0.00-10.9); Hematocrit 47.3 VOL% (42.0-52.0); Hemoglobin 16.1 GM/DL (14.0-18.0); Immature Granulocytes % 2.2 %; Immature Granulocytes Absolute 0.27 #; Lymphocytes # 1.6 10*3/uL (1.4-4.0); Lymphocytes % 12.9 % (21.2-54.2); Mean Corpuscular Hemoglobin 32 PG (27-34); Mean Corpuscular Volume 92.9 FL (87-102); Mean Platelet Volume 12.7 FL (9.6-12.0); Monocytes % 7.8 % (1.7-12.7); Neutrophils # 9.4 10*3/uL (1.4-7.4); Neutrophils % 76.7 % (38.7-73.9); Platelet Count 203 T/CUMM (130-400); Red Cell Distribution Width 14.6 % (9.3-17.3); White Blood Count 12.2 T/CUMM (4-12)
[2017-09-14 06:30] LABS: Red Blood Count 5.09 MC/CUMM (3.8-5.5)
[2017-09-14 06:35] LABS: PT Patient Result 20.5 SECS
[2017-09-14 06:51] LABS: Calcium 8.1 MG/DL (8.5-10.1); Osmolality,Calculated 299.5 MOS/KG (273-304); Potassium 5.1 MMOL/L (3.5-5.1)
[2017-09-14] MEDS: PROPAFENONE 150 MG TABLET PO SCH (07:02)
[2017-09-14] MEDS: glipiZIDE 10 MG TABLET PO SCH (08:12)
[2017-09-14] MEDS: GEMFIBROZIL 600 MG TABLET PO SCH (08:13)
[2017-09-14] MEDS: hydroCHLOROthiazide 12.5 MG CAPSULE PO SCH (08:13)
[2017-09-14] MEDS: guaiFENesin/DM ER 600-30 MG TABLET PO PRN (08:13)
[2017-09-14] MEDS: MAGNESIUM OXIDE 400 MG TABLET PO SCH (08:13)
[2017-09-14] MEDS: PANTOPRAZOLE 40 MG TABLET PO SCH (08:14)
[2017-09-14] MEDS: ASPIRIN EC 81 MG TABLET PO SCH (08:14)
[2017-09-14] MEDS: hydroCHLOROthiazide 25 MG TABLET PO SCH (08:14)
[2017-09-14] MEDS: METOPROLOL TARTRATE 25 MG TABLET PO SCH (08:14)
[2017-09-14] MEDS: NICOTINE 21 MG/24 HR PATCH TRANSDERM SCH (08:15)
[2017-09-14] MEDS: DILTIAZEM CD 300 MG CAPSULE PO SCH (08:15)
[2017-09-14] MEDS: INSULIN NPH 100 UNIT/ML SUBCUT SCH (08:28)
[2017-09-14 08:34] VITALS: BP 148/85
[2017-09-14] MEDS: INSULIN LISPRO 100 UNIT/ML SUBCUT SCH (08:49)
[2017-09-14] MEDS ORDERED: WARFARIN 10 MG TABLET PO SCH (18:00)
[2017-09-15] MEDS ORDERED: REGADENOSON 0.4 MG/5 ML SYRINGE IV ONE (11:39)
== END 2017-09-14 11:39 | disposition home or self-care (01) | DRG 191 ==
LOC: N.ED 19:16 → N.EDINP 23:34 → SUATTDRO 23:34 → N.TELEN 09-09 00:11
PROVIDERS: ADMIT Internal Medicine Nephrology; ATTEND Internal Medicine